=== PATIENT | female | born 1985 | race Caucasian/White ===

== ENCOUNTER 2021-10-19 20:13 | Emergency (ER) | payer SELFPAY ==
--- NOTE | ~2021-10-19 | CT_ITS ---
EXAMINATION: CT abdomen pelvis w con DATE: 10/20/2021 02:39 INDICATION: Right lower quadrant abdominal pain TECHNIQUE: Computed tomography (CT) of the abdomen and pelvis was performed with 100 mL Omnipaque-350 intravenous contrast. Automated exposure control and iterative reconstruction technique were employe d. The dose-length product was 1487.03 mGy-cm. COMPARISON: None FINDINGS: Lung bases are clear. Heart size is normal. No pericardial or pleural effusion. Hepatomegaly with dif fuse hepatic steatosis. Cholecystectomy clips at the gallbladder fossa. Splenomegaly measuring 18.5 c m maximal length. Pancreas, bilateral adrenal glands and kidneys are normal. Fat fluid levels likely due to ingested material in the stomach and proximal small bowel. Bowels are otherwise unremarkable w ith no abnormal bowel wall thickening or obstruction. Normal appendix. Bladder, anteverted uterus and bilateral adnexa are normal. No free intraperitoneal gas or fluid. No pathologically enlarged abdomi nal or pelvic lymphadenopathy. Bones are unremarkable. IMPRESSION: 1. No acute intra-abdominal/pelvic process. 2. Hepatosplenomegaly with diffuse hepatic steatosis. Reviewed, dictated and finalized at location H. ION MECHANIC
--- NOTE | ~2021-10-19 | US_ITS ---
EXAMINATION: US pelvic complete w TV DATE: 10/20/2021 05:07 INDICATION: Right adnexal pain TECHNIQUE: Multiple transabdominal and endovaginal sonographic images of the pelvis were obtained. COMPARISON: None. FINDINGS: The uterus measures 1.5 x 4.3 x 3.6 cm. 1.2 cm anechoic nabothian cyst at the cervix. The endometrial complex is poorly visualized but does not appear thickened on the ultrasound or prior CT. The right ovary measures 3.2 x 2.7 x 2.9 cm with 2.2 m anechoic right ovarian cyst/follicle. Lesser flow identi fied in the right ovary on color Doppler. The left ovary is not visualized on the current study but a ppears normal on prior CT. There is no free fluid in the pelvis. IMPRESSION: 1. Unremarkable pelvic ultrasound. Reviewed, dictated and finalized at [facility]. AL HUSBANDRY TEACHER
[2021-10-19 20:51] VITALS: BP 162/102; PULSE 92; RESP 21; TEMP 36.6; O2SAT 100
[2021-10-20] VITALS (30 sets, daily range): BP systolic 151–173; BP diastolic 84–108; PULSE 82–111; RESP 15–34; TEMP 36.7; O2SAT 97–100
[2021-10-20 00:54] LABS: Basophils Percent Auto 0.3 % (0.2-1.2); Eosinophils Absolute Auto 0.1 K/mm3 (0-0.3); Eosinophils Percent Auto 1.1 % (0-4.4); Hematocrit 34.5 % (37.0-47.0); Hemoglobin 12.1 g/dL (12.0-15.0); Immature Granulocyte Absolute 0.03 K/mm3 (0.00-0.031); Immature Granulocyte Percent A 0.5 % (0-0.5); Lymphocytes Absolute Auto 1.33 K/mm3 (0.9-3.2); Lymphocytes Percent Auto 21.1 % (18.3-44.2); Mean Corpuscular HGB Conc 35.1 g/dl (32-36); Mean Corpuscular Hemoglobin 28.8 pg (26-34); Mean Corpuscular Volume 82.1 fl (80-100); Mean Platelet Volume 9.2 fl (7.4-10.4); Monocytes Absolute Auto 0.4 K/mm3 (0.1-0.6); Monocytes Percent Auto 6.3 % (2.6-8.5); Neutrophils Absolute Auto 4.5 K/mm3 (1.3-6.7); Neutrophils Percent Auto 70.7 % (45.5-73.1); Platelet Count Result 140 k/mm3 (150-375); Red Cell Distribution Width 13.7 % (11.5-14.5); White Blood Count 6.3 K/mm3 (4.5-10.0)
[2021-10-20 00:56] LABS: Add Urine Microscopic? NO; Appearance Urine Clear (Clear); Bilirubin Urine Negative (Negative); Blood Urine Negative (Negative); Color Urine Straw (Yellow); Glucose Urine UA Negative (Negative); Ketones Urine Negative (Negative); Leukocyte Esterase Ur Negative LEU/UL (Negative); Nitrate Urine Negative (Negative); Protein Urine Negative (Negative); Specific Grav Ur 1.011 (1.001-1.035); Urobilinogen Urine Negative mg/dL (<2.0)
[2021-10-20 01:12] LABS: Alanine Aminotransferase 28 U/L (4-35); Albumin Level 4.7 g/dL (3.5-5.1); Alkaline Phosphatase 67 U/L (38-126); Anion Gap 8 mmol/L (8-16); Aspartate Amino Transferase 27 U/L (14-36); Bilirubin,Total 0.8 mg/dL (0.2-1.3); Blood Urea Nitrogen 15 mg/dL (7-17); Calcium 9.4 mg/dL (8.4-10.2); Carbon Dioxide 23 mmol/L (22-30); Chloride 102 mmol/L (98-107); Estimated CRCL calculation 155 ml/min; Estimated Glomerular Filt Rate > 60; Glucose 136 mg/dL (65-110); Lipase 73 U/L (23-300); Potassium 3.8 mmol/L (3.4-5.0); Sodium 133 mmol/L (137-145)
[2021-10-20] MEDS: MORPHINE SULFATE (*CRX) 4 MG/ML INJ IV PUSH ×2 (01:35→04:30)
[2021-10-20] MEDS: ONDANSETRON INJ 4 MG/2 ML VIAL IV PUSH (01:35)
[2021-10-20] MEDS: SODIUM CHLORIDE 0.9% IV 1,000 ML 999 ML IV CONT (01:35)
--- NOTE | 2021-10-20 02:47 | PC.NURSE ---
Pt keeps requesting more pain meds. aware. No new orders.
--- NOTE | 2021-10-20 05:45 | ED.GENADULT ---
HPI - General Adult General Chief complaint: Abdominal Pain Stated complaint: nausea vomiting abd pain x 1 day Time Seen by Provider: 10/20/21 00:07 History of Present Illness HPI narrative: Patient is a 36-year-old female who presents ER with right lower quadrant pain. Sudden onset this evening. Sharp nonradiating. Worse with moving and palpation. No urinary frequency urgency or dysuria. No diarrhea or constipation. She does still have a appendix. No vaginal bleeding or discharge. Patient does endorse some nausea and vomiting related to. Related Data Allergies Allergy/AdvReac Type Severity Reaction Status Date / Time vancomycin Allergy Severe Rash Verified 10/20/21 00:09 ketorolac [From Toradol] Allergy Unknown Rash Verified 10/20/21 00:09 Review of Systems Review of Systems: All systems reviewed & are unremarkable except as noted in HPI and below Constitutional: Constitutional: Denies chills, Denies fever(s) and Denies weakness ENT: Denies nasal congestion and Denies sore throat Gastrointestinal: Gastrointestinal: Reports abdominal pain, Denies constipation, Denies diarrhea, Reports nausea and Reports vomiting Genitourinary: Genitourinary: Denies nocturia, Denies dysuria and Denies vaginal discharge PMFSH Past Medical History Medical History (Updated 10/20/21 @ 06:23 by Yoni Skinner MD) Depression Diabetes Surgical History Surgical History (Updated 10/20/21 @ 05:47 by Yoni Skinner MD) History of section Social History Social History (Updated 10/20/21 @ 05:47 by Ynoi Skinner MD) Smoking status: Never smoker Exam Narrative: GENERAL: Uncomfortable-appearing, well-nourished, and in no acute distress. HEAD: Normocephalic, atraumatic. EYES: PERRL and EOMI. ENT: Mucous membranes moist. CHEST: Clear to auscultation. No respiratory distress. HEART: Regular rate and rhythm. Normal peripheral pulses. ABDOMEN: Soft, tender to palpation right lower quadrant with guarding, nondistended. EXTREMITIES: Normal range of motion. No edema. SKIN: Warm, dry, no rash. NEURO: Alert and oriented x3. PSYCH: Normal mood and affect. Course Course Emergency Course: Unremarkable evaluation. Unsure of etiology of abdominal pain. Patient endorses allergy to ketorolac but says she can take ibuprofen/Aleve. Patient feels comfortable going home. Return precautions given. Vital Signs Vital signs: Vital Signs Temperature 97.8 F 10/19/21 20:51 Pulse Rate 92 10/19/21 20:51 Respiratory Rate 21 H 10/19/21 20:51 Blood Pressure 162/102 H 10/19/21 20:51 Pulse Oximetry 100 10/19/21 20:51 Temperature 98.1 F 10/20/21 06:21 Pulse Rate 89 10/20/21 04:45 Respiratory Rate 19 10/20/21 04:45 Blood Pressure 173/108 H 10/20/21 04:31 Pulse Oximetry 98 10/20/21 06:00 Medical Decision Making Vital Signs Vital Signs: Vital Signs Temperature 97.8 F 10/19/21 20:51 Pulse Rate 92 10/19/21 20:51 Respiratory Rate 21 H 10/19/21 20:51 Blood Pressure 162/102 H 10/19/21 20:51 Pulse Oximetry 100 10/19/21 20:51 Temperature 98.1 F 10/20/21 06:21 Pulse Rate 89 10/20/21 04:45 Respiratory Rate 19 10/20/21 04:45 Blood Pressure 173/108 H 10/20/21 04:31 Pulse Oximetry 98 10/20/21 06:00 Lab Data Result diagrams: 10/20/21 00:47 10/20/21 00:47 Labs: Lab Results 10/20/21 10/20/21 10/20/21 Range/Units 00:47 00:47 00:47 WBC 6.3 (4.5-10.0) K/mm3 RBC 4.20 (4.2-5.4) M/mm3 Hgb 12.1 (12.0-15.0) g/dL Hct 34.5 L (37.0-47.0) % MCV 82.1 (80-100) fl MCH 28.8 (26-34) pg MCHC 35.1 (32-36) g/dl RDW 13.7 (11.5-14.5) % Plt Count 140 L (150-375) k/mm3 MPV 9.2 (7.4-10.4) fl Immature Gran % (Auto) 0.5 (0-0.5) % Neut % (Auto) 70.7 (45.5-73.1) % Lymph % (Auto) 21.1 (18.3-44.2) % [place] % (Auto) 6.3 (2.6-8.5) % Eos % (Auto) 1.1 (0-4.4) % Baso % (Auto) 0.3 (0.2
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
== END 2021-10-20 06:59 | disposition home or self-care (01) ==
PROVIDERS: Emergency Provider Emergency Medicine
DX: R10.31 Right lower quadrant pain (principal); E11.9 Type 2 diabetes mellitus without complications
CPT/HCPCS: 36415; 74177; 76830; 76856; 80053; 81003; 81025; 83690; 85025; 96361; 96374; 96375; 96376; 99284; J2270; J2405; J7030; Q9967

== ENCOUNTER 2021-11-19 20:09 | Emergency (ER) | payer SELFPAY ==
--- NOTE | ~2021-11-19 | XR_ITS ---
EXAMINATION: XR knee RT 3V EXAM DATE: 11/20/2021 00:31 INDICATION: Initial encounter following injury, with pain of the right knee. TECHNIQUE: Three projections of the right knee. There is no prior study for comparison. FINDINGS: No evidence osteochondral defect or joint body in the right knee joint. There are no acut e fractures or dislocations identified. There is no subcutaneous gas. The soft tissue is unremarkab le. There are no radiopaque foreign bodies. There is evidence of prior tibial fracture, hardware w hich has subsequently been removed. Mild to moderate tricompartmental osteoarthritis, could be posttr aumatic etiology no sizable joint effusion. Given the tibial findings. IMPRESSION: 1. XR knee RT 3V exam without acute osseous findings. Reviewed, dictated and finalized at location A. NG SUPERVISOR
--- NOTE | ~2021-11-19 | XR_ITS ---
EXAMINATION: XR hip RT 2V w AP pelvis EXAM DATE: 11/20/2021 00:31 INDICATION: Fall, right hip pain. Initial encounter. TECHNIQUE: Right hip frontal, 'frog leg' projections for interpretation. Frontal projection pelvis. There is no prior study for comparison. FINDINGS: Smooth right hip femoral head contour, no radiographic evidence of avascular necrosis. The re is mild symmetric bilateral hip primary osteoarthritis. There are no acute fractures or dislocatio ns identified. There is no subcutaneous gas. The soft tissue is unremarkable. There are no radiop aque foreign bodies. IMPRESSION: 1. XR hip RT 2V w AP pelvis exam without acute osseous findings. Reviewed, dictated and finalized at location A. HASING ENGINEER
[2021-11-19 20:18] VITALS: BP 166/98; PULSE 104; RESP 20; TEMP 36.4; O2SAT 98
[2021-11-20] MEDS: HYDROcodone/acetaminophen (*CRX) 7.5-325 MG TABLET 1 TAB PO (00:49)
--- NOTE | 2021-11-20 00:53 | ED.FALL ---
HPI - Fall General Chief Complaint: Fall Stated Complaint: flank pain/ covid positive Time Seen by Provider: 11/19/21 23:57 Source: patient and family Mode of arrival: ambulatory Limitations: no limitations History of Present Illness HPI Narrative: Patient is 36 years old white female, morbidly obese, presents with pain at the right hip area and possible right knee after falling down approximately 10 carpeted steps 12 hours ago. Patient denies any other injuries. Patient does not take blood thinner, no head or neck injury. History of right knee surgery Related Data Allergies Allergy/AdvReac Type Severity Reaction Status Date / Time vancomycin Allergy Severe Rash Verified 10/20/21 00:09 ketorolac [From Toradol] Allergy Unknown Rash Verified 10/20/21 00:09 Review of Systems Review of Systems: CONSTITUTIONAL: Denies fever, chills, or sweats. EYES: Denies visual changes, redness, or discharge. ENT: Denies rhinorrhea, congestion, sore throat, or otalgia. CARDIOVASCULAR: Denies chest pain, palpitations, or edema. RESPIRATORY: Denies cough or dyspnea. GASTROINTESTINAL: Denies abdominal pain, nausea, vomiting, or diarrhea. GENITOURINARY: Denies dysuria or hematuria. SKIN: Denies rash or itching. MUSCULOSKELETAL: Denies back pain, joint pain, or myalgia. NEUROLOGIC: Denies headache, numbness, or weakness. PSYCHIATRIC: Denies anxiety or depression. [facility] Past Medical History Medical History Depression Diabetes Surgical History Surgical History History of section Social History Social History Smoking status: Never smoker Exam Narrative: CONSTITUTIONAL: Denies fever, chills, or sweats. EYES: Denies visual changes, redness, or discharge. ENT: Denies rhinorrhea, congestion, sore throat, or otalgia. CARDIOVASCULAR: Denies chest pain, palpitations, or edema. RESPIRATORY: Denies cough or dyspnea. GASTROINTESTINAL: Denies abdominal pain, nausea, vomiting, or diarrhea. GENITOURINARY: Denies dysuria or hematuria. SKIN: Denies rash or itching. MUSCULOSKELETAL: Right hip and right knee tenderness with slight limited range of motion, no bruises, no swelling or deformity NEUROLOGIC: Denies headache, numbness, or weakness. PSYCHIATRIC: Denies anxiety or depression. Course Course Emergency Course: Stable Vital Signs Vital signs: Vital Signs Temperature 36.4 C L 11/19/21 20:18 Pulse Rate 104 H 11/19/21 20:18 Respiratory Rate 20 11/19/21 20:18 Blood Pressure 166/98 H 11/19/21 20:18 Pulse Oximetry 98 11/19/21 20:18 Temperature 36.4 C L 11/19/21 20:18 Pulse Rate 104 H 11/19/21 20:18 Respiratory Rate 20 11/19/21 20:18 Blood Pressure 166/98 H 11/19/21 20:18 Pulse Oximetry 98 11/19/21 20:18 MDM - Fall MDM Narrative Medical decision making narrative: Right hip and right knee pain after a fall. Imaging Data My impression: X-ray of the right hip and pelvis showed no acute abnormalities. X-ray of the right knee showed no acute abnormalities. Critical Care Time Critical Care Time Critical Care Time: No Discharge Plan Discharge Clinical Impression: Fall Qualifiers: Encounter type: initial encounter Qualified Code(s): W19.XXXA - Unspecified fall, initial encounter Lower extremity pain Qualifiers: Laterality: right Qualified Code(s): M79.604 - Pain in right leg Contusion Qualifiers: Encounter type: subsequent encounter Contusion area: hip Laterality: right Qualified Code(s): S70.01XD - Contusion of right hip, subsequent encounter Condition: Stable Instructions: Contusion in Adults (ED) Additional Instructions: Return if symptoms are worsening , call your family physician, orthopedic for appointment, take Tylenol as as needed for aches and pain, continue home medications. Continue home knee brace, call orthopedic for appointme
[2021-11-20] MEDS: ONDANSETRON HCL ODT 4 MG TABLET PO (01:48)
[2021-11-20] MEDS: HYDROmorphone HCL INJ (*CRX) 1 MG/ML SYR IM (01:48)
[2021-11-20 01:49] VITALS: BP 154/95; PULSE 98; RESP 20; O2SAT 99
== END 2021-11-20 02:20 | disposition home or self-care (01) ==
PROVIDERS: Emergency Provider Emergency Medicine
DX: S70.01XA Contusion of right hip, initial encounter (principal); M25.561 Pain in right knee; U07.1 COVID-19; E11.9 Type 2 diabetes mellitus without complications; W10.9XXA Fall (on) (from) unspecified stairs and steps, initial encounter
CPT/HCPCS: 73502; 73562; 96372; 99284; A9270; J1170

== ENCOUNTER 2022-04-02 16:49 | Emergency (ER) | payer SELFPAY ==
--- NOTE | ~2022-04-02 | CT_ITS ---
EXAMINATION: CT abdomen pelvis wo con DATE: 04/02/2022 19:18 INDICATION: abd pain, vomiting TECHNIQUE: Computed tomography (CT) of the abdomen and pelvis was performed without intravenous contr ast. Automated exposure control and iterative reconstruction technique were employed. The dose-length product was 1581.01 mGy-cm. COMPARISON: 10/20/2021. FINDINGS: Lower thorax: Unremarkable Liver: Hepatomegaly. Biliary/Gallbladder: Gallbladder is absent. No bile duct dilation. Pancreas: No mass or duct dilation. Spleen: Splenomegaly. Adrenals:No mass. Kidneys: No mass, stone, or hydronephrosis. GI tract: No small or large bowel dilation. Normal appendix. Mesentery/Peritoneum: No ascites, mass, or free air. Retroperitoneum: No mass. Pelvis: Pelvic organs are within normal limits. Soft Tissues: Soft tissues and body wall unremarkable. Bones: No acute osseous finding. IMPRESSION: No acute abdominopelvic process. Reviewed, dictated and finalized at location K.
--- NOTE | ~2022-04-02 | US_ITS ---
EXAMINATION: US abdomen limited DATE: 04/02/2022 17:51 INDICATION: Right upper quadrant and epigastric pain radiating to the mid back, nausea and vomiting. TECHNIQUE: Multiple grayscale and Doppler limited ultrasound images of the abdomen were obtained. COMPARISON: None available FINDINGS: Exam limited by body habitus. Incompletely visualized, visualized portions appear normal. T he liver is enlarged with increased echogenicity. No surface nodularity. Normal hepatopetal flow in t he main portal vein. Cholecystectomy. The normal common bile duct measures 4 mm. IMPRESSION: 1. Status post cholecystectomy. 2. Hepatomegaly. 3. Echogenic liver, commonly due to steatosis, but may also be seen with fibrosis or hepatitis. Reviewed, dictated and finalized at location K. IMPRESSION: 1. Status post cholecystectomy. 2. Hepatomegaly. 3. Echogenic liver, commonly due to steatosis, but may also be seen with fibros is or hepatitis.
[2022-04-02 17:04] VITALS: BP 147/99; PULSE 62; RESP 20; TEMP 36.7; O2SAT 100
--- NOTE | 2022-04-02 17:30 | ECG_ITS ---
Measurements Intervals [place] Rate: 66 P: 61 UT: 173 QRS: 24 QRSD: 105 T: -2 QT: 422 QTc: 443 Interpretive Statements SINUS RHYTHM NO PREVIOUS ECG AVAILABLE FOR COMPARISON Electronically Signed On 04-02-2022 22:20:48 CDT by Chuyita Reyes M.D.
--- NOTE | 2022-04-02 17:30 | ED.ABDPAIN ---
HPI - Abdominal Pain General Chief Complaint: Abdominal Pain Stated Complaint: abd paini Time Seen by Provider: 04/02/22 17:21 Source: patient Mode of arrival: ambulatory Limitations: no limitations History of Present Illness HPI narrative: This is a 36-year-old female that presents to the emergency department for right upper quadrant pain. Ongoing over the last couple of days. Reports the pain is constantly dull and achy in nature. Intermittently and is more sharp. She has tried several [id number] medications with little relief. Reports some nausea and vomiting. Denies fever, dysuria, hematuria, or diarrhea. Related Data Allergies Allergy/AdvReac Type Severity Reaction Status Date / Time vancomycin Allergy Severe Rash Verified 10/20/21 00:09 ketorolac [From Toradol] Allergy Unknown Rash Verified 10/20/21 00:09 Review of Systems Review of Systems: CONSTITUTIONAL: Denies fever CARDIOVASCULAR: Denies chest pain RESPIRATORY: Denies dyspnea. GASTROINTESTINAL: Reports abdominal pain, nausea, vomiting. Denies diarrhea. GENITOURINARY: Denies dysuria or hematuria. All systems reviewed & are unremarkable except as noted in HPI and below PMFSH Past Medical History Medical History Depression Diabetes Surgical History Surgical History History of section Social History Social History Smoking status: Never smoker Exam Narrative: GENERAL: Well-appearing, well-nourished, and in no acute distress. HEAD: Normocephalic, atraumatic. EYES: EOMI. CHEST: Clear to auscultation. No respiratory distress. No wheezes rales or rhonchi HEART: Regular rate and rhythm. No murmur heard. Normal peripheral pulses. ABDOMEN: Soft, nontender, nondistended, normal active bowel sounds. EXTREMITIES: Normal range of motion. No edema. SKIN: Warm, dry, no rash. NEURO: No focal deficits. Alert and oriented x3. PSYCH: Normal mood and affect Course Vital Signs Vital signs: Vital Signs Temperature 98.1 F 04/02/22 17:04 Pulse Rate 62 04/02/22 17:04 Respiratory Rate 20 04/02/22 17:04 Blood Pressure 147/99 H 04/02/22 17:04 Pulse Oximetry 100 04/02/22 17:04 Oxygen Delivery Room Air 04/02/22 17:04 Temperature 98.1 F 04/02/22 17:04 Pulse Rate 62 04/02/22 17:04 Respiratory Rate 20 04/02/22 17:04 Blood Pressure 147/99 H 04/02/22 17:04 Pulse Oximetry 100 04/02/22 17:04 Oxygen Delivery Room Air 04/02/22 17:04 MDM - Abdominal Pain MDM Narrative Medical decision making narrative: Patient presents to the emergency department for epigastric pain present ongoing over the last couple of days. Patient is afebrile and nontoxic-appearing. Her vitals are stable. CBC and metabolic panel without concerning findings. Lipase is normal. UA without evidence of infection. Bedside test is negative. Right upper quadrant ultrasound shows hepatomegaly with echogenic liver commonly due to steatosis. CT scan of the abdomen and pelvis is without acute findings. EKG without concerning changes. Patient was updated on case findings. Reports agreement with [employer]. She is stable and felt appropriate for further outpatient evaluation. Reports she will be finding a primary doctor closer to home over in [place]. She was given warnings to return to the ER Lab Data Attestation: I reviewed the patient's lab results. Result diagrams: 04/02/22 17:54 04/02/22 18:28 Labs: Lab Results 04/02/22 04/02/22 04/02/22 Range/Units 17:54 18:28 18:28 WBC 6.6 (4.5-10.0) K/mm3 RBC 4.42 (4.2-5.4) M/mm3 Hgb 12.5 (12.0-15.0) g/dL Hct 37.3 (37.0-47.0) % MCV 84.4 (80-100) fl MCH 28.3 (26-34) pg MCHC 33.5 (32-36) g/dl RDW 14.1 (11.5-14.5) % Plt Count 165 (150-375) k/mm3 MPV 10.3 (7.4
[2022-04-02 18:00] LABS: Basophils Percent Auto 0.3 % (0.2-1.2); Eosinophils Percent Auto 0.6 % (0-4.4); Hematocrit 37.3 % (37.0-47.0); Hemoglobin 12.5 g/dL (12.0-15.0); Immature Granulocyte Absolute 0.02 K/mm3 (0.00-0.031); Immature Granulocyte Percent A 0.3 % (0-0.5); Lymphocytes Absolute Auto 1.21 K/mm3 (0.9-3.2); Lymphocytes Percent Auto 18.4 % (18.3-44.2); Mean Corpuscular HGB Conc 33.5 g/dl (32-36); Mean Corpuscular Hemoglobin 28.3 pg (26-34); Mean Corpuscular Volume 84.4 fl (80-100); Mean Platelet Volume 10.3 fl (7.4-10.4); Monocytes Absolute Auto 0.4 K/mm3 (0.1-0.6); Monocytes Percent Auto 5.5 % (2.6-8.5); Neutrophils Absolute Auto 4.9 K/mm3 (1.3-6.7); Neutrophils Percent Auto 74.9 % (45.5-73.1); Platelet Count Result 165 k/mm3 (150-375); Red Blood Count 4.42 M/mm3 (4.2-5.4); Red Cell Distribution Width 14.1 % (11.5-14.5); White Blood Count 6.6 K/mm3 (4.5-10.0)
[2022-04-02 18:42] LABS: Appearance Urine Clear (Clear); Bilirubin Urine Negative (Negative); Blood Urine Negative (Negative); Color Urine Yellow (Yellow); Glucose Urine UA Negative (Negative); Ketones Urine Negative (Negative); Leukocyte Esterase Ur Negative LEU/UL (Negative); Nitrate Urine Negative (Negative); Protein Urine Negative (Negative); Specific Grav Ur 1.015 (1.001-1.035); Urobilinogen Urine 0.2 mg/dL (<2.0); pH Urine 5.5 (5.0-9.0)
[2022-04-02 18:43] LABS: Alanine Aminotransferase 26 U/L (6-35); Alkaline Phosphatase 56 U/L (38-126); Anion Gap 11 mmol/L (8-16); Aspartate Amino Transferase 25 U/L (14-36); Bilirubin,Total 1.1 mg/dL (0.2-1.3); Blood Urea Nitrogen 11 mg/dL (7-17); Calcium 9.8 mg/dL (8.4-10.2); Carbon Dioxide 23 mmol/L (22-30); Chloride 102 mmol/L (98-107); Estimated CRCL calculation 152 ml/min; Estimated Glomerular Filt Rate > 60; Glucose 109 mg/dL (65-110); Lipase 42 U/L (23-300); Sodium 136 mmol/L (137-145)
[2022-04-02 18:52] LABS: Add Urine Microscopic? NO
--- NOTE | 2022-04-02 19:09 | PC.NURSE ---
Pt to CT at this time.
[2022-04-02] MEDS: ONDANSETRON INJ 4 MG/2 ML VIAL IV PUSH (19:20)
[2022-04-02] MEDS: PANTOPRAZOLE SODIUM IV 40 MG VIAL IV PUSH (19:22)
[2022-04-02 20:23] LABS: Hepatitis B Surface Antigen Negative (Negative)
[2022-04-02 20:31] LABS: HAV RESULT Negative (Negative); Hepatitis B Core IgM Result Negative (Negative)
[2022-04-02 20:39] VITALS: BP 146/95; PULSE 78; RESP 16; O2SAT 97
[2022-04-02 20:40] LABS: Hepatitis C Virus Antibody Negative (Negative)
== END 2022-04-02 20:37 | disposition home or self-care (01) ==
PROVIDERS: Family Medicine; Physician Assistant; Emergency Provider General Practice
DX: R10.13 Epigastric pain (principal); E11.9 Type 2 diabetes mellitus without complications; R16.0 Hepatomegaly, not elsewhere classified; R93.2 Abnormal findings on diagnostic imaging of liver and biliary tract
CPT/HCPCS: 36415; 74176; 76705; 80053; 80074; 81003; 81025; 83690; 85025; 93005; 96374; 96375; 99284; C9113; J2405

== ENCOUNTER 2022-10-28 18:02 | Emergency (ER) | payer OTHER, SELFPAY ==
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
[2022-10-28 18:12] VITALS: BP 133/88; PULSE 87; RESP 20; TEMP 36; O2SAT 100
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
[2022-10-28] MEDS: MORPHINE SULFATE (*CRX) 2 MG/ML INJ IV PUSH (21:21)
[2022-10-28] MEDS: ACETAMINOPHEN 500 MG TABLET 1000 MG PO (21:22)
[2022-10-28 21:23] VITALS: BP 144/89; PULSE 78; RESP 19; O2SAT 97
== END 2022-10-28 21:55 | disposition home or self-care (01) ==
PROVIDERS: Emergency Provider Emergency Medicine
DX: S43.491A Other sprain of right shoulder joint, initial encounter (principal); S93.401A Sprain of unspecified ligament of right ankle, initial encounter; S39.012A Strain of muscle, fascia and tendon of lower back, initial encounter; V48.5XXA Car driver injured in noncollision transport accident in traffic accident, initial encounter
CPT/HCPCS: 70450; 72125; 73030; 73560; 73600; 73620; 96374; 99284; A9270; J2270